=== PATIENT | female | born 1935 | race Asian ===

== ENCOUNTER 2022-10-18 16:58 | Inpatient (IN) | payer MEDICARE, MEDICAID ==
[~2022-10-18] VITALS: Ht 160 cm; Wt 60.1 kg
[2022-10-18] MEDS ORDERED: 0.9% SODIUM CHLORIDE 10 ML SYRINGE IVP PRN (18:00)
[2022-10-18 18:33] LABS: ANION GAP 13 mmol/L (8-16); CALCIUM, TOTAL 8.6 mg/dL (8.8-10.5); CARBON DIOXIDE 20 mmol/L (22-29); CHLORIDE 103 mmol/L (98-107); CREATININE 1.93 mg/dL (0.60-1.30); GLOMERULAR FILTR. RATE CALC 25 mL/min (>60); GLUCOSE,RANDOM 151 mg/dL (70-110); POTASSIUM 4.5 mmol/L (3.5-5.1); SODIUM SERUM 136 mmol/L (136-145); UREA NITROGEN, BLOOD 32 mg/dL (7-18)
[2022-10-18 18:37] LABS: INR 1.3 (0.9-1.1); PROTHROMBIN TIME 13.3 SEC (9.4-11.6)
[2022-10-18 18:39] LABS: ALANINE AMINOTRANSFERASE 15 U/L (12-78); ALBUMIN 3.2 g/dL (3.4-5.0); ALKALINE PHOSPHATASE 68 U/L (46-116); ASPARTATE AMINOTRANSFERASE 20 U/L (15-37); BILIRUBIN,TOTAL 1.2 mg/dL (0.1-1.0); TOTAL PROTEIN, SERUM 6.6 g/dL (6.4-8.2)
[2022-10-18 18:55] LABS: BASOPHILS % (AUTO) 0.3 % (0.0-2.0); EOSINOPHILS % (AUTO) 0.1 % (1.0-6.0); HEMATOCRIT 33.6 % (36-46); LYMPHOCYTES # (AUTO) 1.7 K/uL (1.0-4.8); LYMPHOCYTES % (AUTO) 10.7 % (22.0-44.0); MEAN CORPUSCULAR HEMOGLOBIN 33.2 pg (26.0-34.0); MEAN CORPUSCULAR HGB CONC 32.8 G/dL (31.0-37.0); MEAN CORPUSCULAR VOLUME 102 fL (80-100); MONOCYTES # (AUTO) 0.7 K/uL (0.1-1.0); MONOCYTES % (AUTO) 4.5 % (2.0-9.0); NEUTROPHILS # (AUTO) 13.4 K/uL (1.8-7.7); NEUTROPHILS % (AUTO) 84.4 % (40.0-70.0); PLATELET COUNT (AUTO) 141 K/uL (150-450); RED BLOOD CELL COUNT(AUTO) 3.31 MIL/uL (4.00-5.20); RED CELL DISTRIBUTION WIDTH 14.8 % (11.5-14.5)
[2022-10-18] MEDS ORDERED: ONDANSETRON HCL 4 MG/2 ML VIAL IVP ONE (19:15)
[2022-10-18] MEDS ORDERED: LORazepam 2 MG/ML VIAL IVP ONE (20:00)
[2022-10-18 20:32] LABS: COVID AG,FIA SOURCE NASAL SWAB
[2022-10-18 20:34] LABS: LACTIC ACID 4.4 mmol/L (0.4-2.0)
[2022-10-18 20:44] LABS: APPEARANCE,URINE HAZY (CLEAR); BILIRUBIN,URINE NEGATIVE (NEGATIVE); GLUCOSE, URINE (UA) NEGATIVE (NEGATIVE); KETONES,URINE NEGATIVE (NEGATIVE); LEUKOCYTE ESTERASE ,URINE LARGE (NEGATIVE); NITRATE,URINE NEGATIVE (NEGATIVE); OCCULT BLOOD,URINE SMALL (NEGATIVE); PROTEIN,URINE 100-200,SEE CONFIRM mg/dL (NEGATIVE); SPECIFIC GRAVITIY, URINE 1.013 (1.003-1.030); UROBILINOGEN,URINE <=1.0 mg/dL (<=1.0)
[2022-10-18] MEDS ORDERED: PIPERACILLIN/TAZO 3.375 GM/D5W 50 ML IV ONE (20:45)
[2022-10-18] MEDS ORDERED: SODIUM CHLORIDE 0.9% 2,050 ML IV ONE (20:45)
[2022-10-18 21:08] LABS: BACTERIA,URINE Rare /HPF (None Seen); RBC,URINE 0-2 /HPF (0-2); SQUAMOUS EPITHELIAL CELL,UR Few /LPF (None Seen); SULFOSALICYLIC ACID,URINE 1+ (Negative)
[2022-10-18] MEDS ORDERED: SODIUM CHLORIDE 0.9% 1,000 ML IV SCH (21:15)
[2022-10-18] MEDS ORDERED: ONDANSETRON HCL 4 MG/2 ML VIAL IVP PRN (21:15)
[2022-10-18] MEDS ORDERED: ACETAMINOPHEN 325 MG TABLET PO PRN (21:15)
[2022-10-18] MEDS ORDERED: NOREPINEPHRINE 8 MG/D5%-WATER 250 ML IV PRN (21:15)
[2022-10-18] MEDS ORDERED: SODIUM CHLORIDE 0.9% 1,000 ML IV ONE (21:30)
[2022-10-18] MEDS ORDERED: DEXTROSE 50%-WATER 25 GM/50 ML SYRINGE IVP PRN (21:30)
[2022-10-18 22:14] LABS: CREATININE,URINE RANDOM 52.4 mg/dL (30.0-125.0)
[2022-10-18 22:19] LABS: AMPHET/METH SCREEN,URINE NEGATIVE (NEGATIVE); BARBITURATE SCREEN, URINE NEGATIVE (NEGATIVE); BENZODIAZEPINES SCREEN,URINE NEGATIVE (NEGATIVE); CANNABINOID SCREEN,URINE NEGATIVE (NEGATIVE); COCAINE SCREEN,URINE NEGATIVE (NEGATIVE); METHADONE SCREEN, URINE NEGATIVE (NEGATIVE); OPIATE SCREEN,URINE NEGATIVE (NEGATIVE); PHENCYCLIDINE SCREEN,URINE NEGATIVE (NEGATIVE)
[2022-10-19] MEDS ORDERED: ACETAMINOPHEN 325 MG/ISO-OSM 32.5 ML IV ONE (02:30)
[2022-10-19] MEDS ORDERED: *CLINICAL-CEFEPIME DOSING CLINICAL ONE (02:30)
[2022-10-19] MEDS ORDERED: HALOPERIDOL LACTATE 5 MG/ML VIAL IM ONE ×4 (02:30→23:30)
[2022-10-19] MEDS ORDERED: VANCOMYCIN 1GM/WATER(PEG/NADA) 200 ML IV PRN (02:45)
[2022-10-19] MEDS ORDERED: VANCOMYCIN HCL 1.5 GM in DEXTROSE 5%-WATER 250 ML IV ONE (03:00)
[2022-10-19] MEDS: CEFEPIME HCL 1 GM in DEXTROSE 5%-WATER 50 ML IV SCH (04:03)
[2022-10-19] MEDS ORDERED: PIPERACILLIN SODIUM/TAZOBACTAM 2.25 GM in DEXTROSE 5%-WATER 50 ML IV SCH (05:00)
[2022-10-19] MEDS ORDERED: HEPARIN SODIUM,PORCINE 5,000 UNITS/ML VIAL SQ SCH ×2 (07:00)
[2022-10-19 07:05] LABS: BASOPHILS % (AUTO) 0.3 % (0.0-2.0); EOSINOPHILS % (AUTO) 0.1 % (1.0-6.0); HEMATOCRIT 32.3 % (36-46); HEMOGLOBIN 11.1 g/dL (12.0-16.0); LYMPHOCYTES # (AUTO) 1.1 K/uL (1.0-4.8); LYMPHOCYTES % (AUTO) 5.8 % (22.0-44.0); MEAN CORPUSCULAR HEMOGLOBIN 34.1 pg (26.0-34.0); MEAN CORPUSCULAR HGB CONC 34.3 G/dL (31.0-37.0); MEAN CORPUSCULAR VOLUME 99 fL (80-100); MONOCYTES % (AUTO) 5.3 % (2.0-9.0); NEUTROPHILS # (AUTO) 16.4 K/uL (1.8-7.7); PLATELET COUNT (AUTO) 121 K/uL (150-450); RED BLOOD CELL COUNT(AUTO) 3.26 MIL/uL (4.00-5.20)
[2022-10-19 07:07] LABS: NEUTROPHILS % (AUTO) 88.5 % (40.0-70.0)
[2022-10-19 07:17] LABS: CALCIUM, TOTAL 7.7 mg/dL (8.8-10.5); CREATININE 1.54 mg/dL (0.60-1.30); MAGNESIUM 1.6 mg/dL (1.80-2.40); POTASSIUM 4.5 mmol/L (3.5-5.1)
[2022-10-19 07:33] LABS: ABG BASE EXCESS -7.4 mmol/L (-2.0-3.0); ABG CARBOXYHEMOGLOBIN 0.3 % (0.0-1.5); ABG HCO3 19.6 mmol/L (22.0-26.0); ABG METHEMOGLOBIN 0.1 % (0.0-1.5); ABG OXYGEN CONTENT 15.6 mL/dL (15.0-23.0); ABG OXYGEN SATURATION 92.9 % (95.0-98.0); ABG OXYHEMOGLOBIN 92.5 % (94.0-100.0); ABG PCO2 26 mmHg (35-45); ABG PH 7.435 (7.35-7.450); PO2, ARTERIAL BG 66.9 mmHg (71.0-79.0); SITE, BLOOD GAS LFT RADIAL; SOURCE, BLOOD GAS ARTERIAL; TEMPERATURE, FAHRENHEIT, BG 98.9 FAHREN (96.0-98.6)
[2022-10-19 07:34] LABS: O2 DEVICE,BLOOD GAS ROOM AIR (ROOM AIR)
[2022-10-19] MEDS: DOCUSATE SODIUM 100 MG CAPSULE PO SCH ×2 (08:34→21:00)
[2022-10-19] MEDS ORDERED: ASCO500 PO (08:53)
[2022-10-19] MEDS ORDERED: TRAZ-252 PO (08:53)
[2022-10-19] MEDS ORDERED: PANT-31 PO (08:53)
[2022-10-19] MEDS ORDERED: APIX5TAB PO (08:53)
[2022-10-19] MEDS ORDERED: TRAZ-257 PO (08:53)
[2022-10-19] MEDS ORDERED: CRAN500T4 PO (08:53)
[2022-10-19] MEDS ORDERED: AMLO-258 PO (08:53)
[2022-10-19] MEDS ORDERED: ATEN-72 PO (08:53)
[2022-10-19] MEDS ORDERED: CYAN500T56 PO (08:53)
[2022-10-19] MEDS ORDERED: XALA2.5OS OU (08:53)
[2022-10-19] MEDS ORDERED: ATOR40TA28 PO (08:53)
[2022-10-19] MEDS ORDERED: CHOL25TA4 PO (08:53)
[2022-10-19] MEDS: LORazepam 2 MG/ML VIAL IVP PRN (11:24)
[2022-10-19] MEDS ORDERED: ACETAMINOPHEN 650 MG RECTAL SUPPOSITORY PR PRN (12:15)
[2022-10-19] MEDS ORDERED: *CLINICAL-LEVOFLOXACIN IVPB DOSING CLINICAL ONE (13:00)
[2022-10-19] MEDS: HEPARIN SODIUM,PORCINE 5,000 UNITS/ML VIAL SQ SCH ×3 (13:31→23:22)
[2022-10-19] MEDS: LEVOFLOXACIN 750 MG/D5% WATER 150 ML IV SCH (13:32)
[2022-10-19 19:01] LABS: GLUCOSE,POINT OF CARE 125 MG/DL (70-110)
[2022-10-19] MEDS ORDERED: MAGNESIUM SULFATE 2 GM/WATER 50 ML IV ONE (22:45)
[2022-10-19 23:07] LABS: CALCIUM, TOTAL 8.7 mg/dL (8.8-10.5); CREATININE 1.15 mg/dL (0.60-1.30); POTASSIUM 3.8 mmol/L (3.5-5.1)
[2022-10-19 23:08] LABS: MAGNESIUM 1.9 mg/dL (1.80-2.40)
[2022-10-19] MEDS ORDERED: DILTIAZEM HCL 5 MG/ML 5 ML VIAL IVP ONE (23:45)
[2022-10-19] MEDS ORDERED: DiphenhydrAMINE HCL 50 MG/ML VIAL IVP ONE (23:45)
[2022-10-20] MEDS ORDERED: SODIUM CHLORIDE 0.9% 1,000 ML IV ONE (02:00)
[2022-10-20] MEDS ORDERED: DIGOXIN 250 MCG/ML 2 ML AMP IVP ONE (02:00)
[2022-10-20] MEDS ORDERED: LORazepam 2 MG/ML VIAL IM ONE (04:00)
[2022-10-20] MEDS ORDERED: HALOPERIDOL LACTATE 5 MG/ML VIAL IM ONE (04:00)
[2022-10-20] MEDS ORDERED: DiphenhydrAMINE HCL 50 MG/ML VIAL IM ONE (04:00)
[2022-10-20] MEDS: CEFEPIME HCL 1 GM in DEXTROSE 5%-WATER 50 ML IV SCH (04:29)
[2022-10-20] MEDS ORDERED: LORazepam 2 MG/ML VIAL IVP ONE (05:45)
[2022-10-20 07:09] LABS: BASOPHILS % (AUTO) 0.2 % (0.0-2.0); EOSINOPHILS % (AUTO) 0.2 % (1.0-6.0); HEMATOCRIT 32.1 % (36-46); LYMPHOCYTES # (AUTO) 0.9 K/uL (1.0-4.8); LYMPHOCYTES % (AUTO) 6.8 % (22.0-44.0); MEAN CORPUSCULAR HEMOGLOBIN 33.6 pg (26.0-34.0); MEAN CORPUSCULAR HGB CONC 34.3 G/dL (31.0-37.0); MEAN CORPUSCULAR VOLUME 98 fL (80-100); MONOCYTES # (AUTO) 0.8 K/uL (0.1-1.0); MONOCYTES % (AUTO) 6.4 % (2.0-9.0); NEUTROPHILS # (AUTO) 10.9 K/uL (1.8-7.7); PLATELET COUNT (AUTO) 120 K/uL (150-450); RED BLOOD CELL COUNT(AUTO) 3.28 MIL/uL (4.00-5.20); RED CELL DISTRIBUTION WIDTH 14.8 % (11.5-14.5)
[2022-10-20 07:15] LABS: NEUTROPHILS % (AUTO) 86.4 % (40.0-70.0)
[2022-10-20 07:20] LABS: CALCIUM, TOTAL 8.6 mg/dL (8.8-10.5); CREATININE 1.02 mg/dL (0.60-1.30); POTASSIUM 4.2 mmol/L (3.5-5.1)
[2022-10-20] MEDS: HEPARIN SODIUM,PORCINE 5,000 UNITS/ML VIAL SQ SCH (08:04)
[2022-10-20] MEDS: DOCUSATE SODIUM 100 MG CAPSULE PO SCH ×2 (09:00→20:55)
[2022-10-20] MEDS: APIXABAN 5 MG TABLET PO SCH ×2 (09:00→20:55)
[2022-10-20] MEDS ORDERED: AMIODARONE HCL 150 MG in DEXTROSE 5%-WATER 97 ML IV ONE (10:50)
[2022-10-20] MEDS ORDERED: AMIODARONE HCL 360 MG in DEXTROSE 5%-WATER 242.8 ML IV ONE (11:00)
[2022-10-20] MEDS ORDERED: HEPARIN SODIUM,PORCINE 5,000 UNITS/ML VIAL IVP ONE (12:45)
[2022-10-20] MEDS ORDERED: HEPARIN SODIUM,PORCINE 5,000 UNITS/ML VIAL IVP PRN (12:45)
[2022-10-20 12:58] LABS: BASOPHILS % (AUTO) 0.4 % (0.0-2.0); EOSINOPHILS % (AUTO) 0.3 % (1.0-6.0); HEMATOCRIT 32.5 % (36-46); HEMOGLOBIN 11.3 g/dL (12.0-16.0); LYMPHOCYTES # (AUTO) 1.1 K/uL (1.0-4.8); MEAN CORPUSCULAR HEMOGLOBIN 34.1 pg (26.0-34.0); MEAN CORPUSCULAR HGB CONC 34.7 G/dL (31.0-37.0); MEAN CORPUSCULAR VOLUME 98 fL (80-100); MONOCYTES # (AUTO) 0.8 K/uL (0.1-1.0); MONOCYTES % (AUTO) 6.8 % (2.0-9.0); NEUTROPHILS # (AUTO) 9.9 K/uL (1.8-7.7); NEUTROPHILS % (AUTO) 83.5 % (40.0-70.0); PLATELET COUNT (AUTO) 130 K/uL (150-450); RED BLOOD CELL COUNT(AUTO) 3.31 MIL/uL (4.00-5.20)
[2022-10-20 13:15] LABS: INR 1.1 (0.9-1.1); PROTHROMBIN TIME 11.4 SEC (9.4-11.6)
[2022-10-20 14:50] VITALS: BP 132/97
[2022-10-20] MEDS ORDERED: SODIUM CHLORIDE 0.9% 250 ML IV ONE (15:08)
[2022-10-20] MEDS: HEPARIN SODIUM 25000 UNITS/D5W 250 ML IV PRN (15:25)
[2022-10-20] MEDS ORDERED: CEFEPIME HCL 2 GM in DEXTROSE 5%-WATER 50 ML IV SCH (16:00)
[2022-10-20] MEDS ORDERED: AMIODARONE HCL 540 MG in DEXTROSE 5%-WATER 239.2 ML IV ONE (17:00)
[2022-10-20 17:30] VITALS: BP 120/78
[2022-10-20 18:21] LABS: GLUCOMETER DEV NAME(LOC) 5N.2C; GLUCOSE,POINT OF CARE 162 MG/DL (70-110)
[2022-10-20 20:02] VITALS: BP 109/54
[2022-10-20] MEDS: LORazepam 2 MG/ML VIAL IVP PRN (21:12)
[2022-10-20 23:50] VITALS: BP 140/97
[2022-10-21 00:51] LABS: GLUCOMETER DEV NAME(LOC) 5N.2C; GLUCOSE,POINT OF CARE 157 MG/DL (70-110)
[2022-10-21 05:14] VITALS: BP 110/72
[2022-10-21 07:16] VITALS: BP 123/78
[2022-10-21 07:28] LABS: BASOPHILS % (AUTO) 0.7 % (0.0-2.0); EOSINOPHILS % (AUTO) 0.8 % (1.0-6.0); HEMATOCRIT 28.3 % (36-46); HEMOGLOBIN 10.1 g/dL (12.0-16.0); LYMPHOCYTES # (AUTO) 1.3 K/uL (1.0-4.8); LYMPHOCYTES % (AUTO) 14.6 % (22.0-44.0); MEAN CORPUSCULAR HEMOGLOBIN 35.1 pg (26.0-34.0); MEAN CORPUSCULAR HGB CONC 35.8 G/dL (31.0-37.0); MEAN CORPUSCULAR VOLUME 98 fL (80-100); MONOCYTES # (AUTO) 0.8 K/uL (0.1-1.0); MONOCYTES % (AUTO) 9.3 % (2.0-9.0); NEUTROPHILS # (AUTO) 6.7 K/uL (1.8-7.7); NEUTROPHILS % (AUTO) 74.6 % (40.0-70.0); PLATELET COUNT (AUTO) 130 K/uL (150-450); RED BLOOD CELL COUNT(AUTO) 2.88 MIL/uL (4.00-5.20); RED CELL DISTRIBUTION WIDTH 14.9 % (11.5-14.5)
[2022-10-21 07:43] LABS: CALCIUM, TOTAL 8.3 mg/dL (8.8-10.5); CREATININE 0.97 mg/dL (0.60-1.30); POTASSIUM 3.7 mmol/L (3.5-5.1)
[2022-10-21] MEDS: DOCUSATE SODIUM 100 MG CAPSULE PO SCH ×2 (08:37→22:05)
[2022-10-21] MEDS: APIXABAN 5 MG TABLET PO SCH ×2 (08:37→22:05)
[2022-10-21] MEDS: HEPARIN SODIUM,PORCINE 5,000 UNITS/ML VIAL IVP PRN ×2 (09:33→18:55)
[2022-10-21] MEDS ORDERED: AMIODARONE HCL 750 MG in DEXTROSE 5%-WATER 485 ML IV SCH (11:00)
[2022-10-21 11:19] VITALS: BP 123/82
[2022-10-21] MEDS: LEVOFLOXACIN 750 MG/D5% WATER 150 ML IV SCH (12:25)
[2022-10-21] MEDS: DEXTROSE 5%-0.45% SODIUM CHL 1,000 ML IV SCH (12:30)
[2022-10-21 13:17] LABS: GLUCOMETER DEV NAME(LOC) 5N.2C; GLUCOSE,POINT OF CARE 134 MG/DL (70-110)
[2022-10-21 15:15] VITALS: BP 109/73
[2022-10-21] MEDS: CEFEPIME HCL 2 GM in DEXTROSE 5%-WATER 50 ML IV SCH (15:40)
[2022-10-21 18:31] LABS: GLUCOMETER DEV NAME(LOC) 5S.2C; GLUCOSE,POINT OF CARE 124 MG/DL (70-110)
[2022-10-21 20:12] VITALS: BP 105/69
[2022-10-21 23:41] LABS: GLUCOMETER DEV NAME(LOC) 5S.2C; GLUCOSE,POINT OF CARE 158 MG/DL (70-110)
[2022-10-22] MEDS: CEFEPIME HCL 2 GM in DEXTROSE 5%-WATER 50 ML IV SCH ×2 (00:29→13:35)
[2022-10-22 00:37] VITALS: BP 132/74
[2022-10-22 06:17] VITALS: BP 111/66
[2022-10-22] MEDS: DEXTROSE 5%-0.45% SODIUM CHL 1,000 ML IV SCH (06:30)
[2022-10-22] MEDS: HEPARIN SODIUM 25000 UNITS/D5W 250 ML IV PRN (06:43)
[2022-10-22 07:45] VITALS: BP 113/67
[2022-10-22 08:00] LABS: CALCIUM, TOTAL 7.6 mg/dL (8.8-10.5); CREATININE 0.97 mg/dL (0.60-1.30); POTASSIUM 3.1 mmol/L (3.5-5.1)
[2022-10-22] MEDS: DOCUSATE SODIUM 100 MG CAPSULE PO SCH ×2 (08:42→20:09)
[2022-10-22] MEDS: APIXABAN 5 MG TABLET PO SCH ×2 (08:42→20:09)
[2022-10-22 10:16] LABS: GLUCOMETER DEV NAME(LOC) 5N.2C; GLUCOSE,POINT OF CARE 159 MG/DL (70-110)
[2022-10-22 11:29] VITALS: BP 118/70
[2022-10-22] MEDS ORDERED: SODIUM CHLORIDE 0.9% 1,000 ML IV ONE (11:45)
[2022-10-22 14:25] LABS: GLUCOMETER DEV NAME(LOC) 5N.2C; GLUCOSE,POINT OF CARE 163 MG/DL (70-110)
[2022-10-22 15:30] VITALS: BP 131/77
[2022-10-22] MEDS: AMIODARONE HCL 200 MG TABLET PO SCH (20:09)
[2022-10-22] MEDS: INSULIN LISPRO 100 UNITS/ML SQ PRN (20:29)
[2022-10-22 20:33] VITALS: BP 126/74
[2022-10-22] MEDS: LORazepam 2 MG/ML VIAL IVP PRN (23:53)
[2022-10-23] MEDS: CefTRIAXone 1 GM/DEXTROSE 50 ML IV SCH (00:03)
[2022-10-23 00:23] VITALS: BP 116/79
[2022-10-23 06:21] LABS: GLUCOMETER DEV NAME(LOC) 5S.1B; GLUCOSE,POINT OF CARE 156 MG/DL (70-110)
[2022-10-23 07:00] VITALS: BP 121/65
[2022-10-23 07:40] VITALS: BP 121/74
[2022-10-23 08:06] LABS: GLUCOMETER DEV NAME(LOC) 5S.1B; GLUCOSE,POINT OF CARE 139 MG/DL (70-110)
[2022-10-23 08:06] LABS: GLUCOMETER DEV NAME(LOC) 5N.2C; GLUCOSE,POINT OF CARE 137 MG/DL (70-110)
[2022-10-23] MEDS: DOCUSATE SODIUM 100 MG CAPSULE PO SCH ×2 (08:20→20:29)
[2022-10-23] MEDS: APIXABAN 5 MG TABLET PO SCH ×2 (08:20→20:29)
[2022-10-23] MEDS: AMIODARONE HCL 200 MG TABLET PO SCH ×2 (08:20→20:29)
[2022-10-23 11:03] LABS: BASOPHILS % (AUTO) 0.3 % (0.0-2.0); EOSINOPHILS % (AUTO) 0.5 % (1.0-6.0); HEMATOCRIT 28.7 % (36-46); HEMOGLOBIN 10.3 g/dL (12.0-16.0); LYMPHOCYTES # (AUTO) 0.9 K/uL (1.0-4.8); LYMPHOCYTES % (AUTO) 13.6 % (22.0-44.0); MEAN CORPUSCULAR HEMOGLOBIN 34.5 pg (26.0-34.0); MEAN CORPUSCULAR HGB CONC 35.8 G/dL (31.0-37.0); MEAN CORPUSCULAR VOLUME 96 fL (80-100); MONOCYTES # (AUTO) 0.9 K/uL (0.1-1.0); NEUTROPHILS % (AUTO) 72.6 % (40.0-70.0); PLATELET COUNT (AUTO) 176 K/uL (150-450); RED BLOOD CELL COUNT(AUTO) 2.98 MIL/uL (4.00-5.20); RED CELL DISTRIBUTION WIDTH 14.8 % (11.5-14.5)
[2022-10-23 11:17] LABS: ANION GAP 11 mmol/L (8-16); CALCIUM, TOTAL 8.1 mg/dL (8.8-10.5); CARBON DIOXIDE 22 mmol/L (22-29); CHLORIDE 108 mmol/L (98-107); CREATININE 0.85 mg/dL (0.60-1.30); GLOMERULAR FILTR. RATE CALC > 60 mL/min (>60); GLUCOSE,RANDOM 168 mg/dL (70-110); SODIUM SERUM 141 mmol/L (136-145); UREA NITROGEN, BLOOD 13 mg/dL (7-18)
[2022-10-23] MEDS: INSULIN LISPRO 100 UNITS/ML SQ PRN ×2 (11:36→20:48)
[2022-10-23 11:53] VITALS: BP 102/58
[2022-10-23] MEDS: LEVOFLOXACIN 750 MG/D5% WATER 150 ML IV SCH (13:35)
[2022-10-23] MEDS ORDERED: POTASSIUM CHLORIDE 10% 40 MEQ/30 ML LIQUID UDCUP PO PRN (14:15)
[2022-10-23] MEDS ORDERED: POTASSIUM CHL 10 MEQ/WATER 50 ML IV PRN (14:15)
[2022-10-23 15:36] VITALS: BP 122/71
[2022-10-23 17:11] LABS: GLUCOMETER DEV NAME(LOC) 5N.2C; GLUCOSE,POINT OF CARE 147 MG/DL (70-110)
[2022-10-23 21:02] VITALS: BP 134/76
[2022-10-23] MEDS: LORazepam 2 MG/ML VIAL IVP PRN (22:09)
[2022-10-24] MEDS: CefTRIAXone 1 GM/DEXTROSE 50 ML IV SCH (00:57)
[2022-10-24 01:05] VITALS: BP 121/76
[2022-10-24 04:24] VITALS: BP 104/66
[2022-10-24 06:01] LABS: GLUCOMETER DEV NAME(LOC) 5S.1B; GLUCOSE,POINT OF CARE 127 MG/DL (70-110)
[2022-10-24] MEDS: LORazepam 2 MG/ML VIAL IVP PRN (07:46)
[2022-10-24 08:02] VITALS: BP 116/66
[2022-10-24] MEDS: DOCUSATE SODIUM 100 MG CAPSULE PO SCH (08:07)
[2022-10-24] MEDS: APIXABAN 5 MG TABLET PO SCH (08:08)
[2022-10-24] MEDS: AMIODARONE HCL 200 MG TABLET PO SCH (08:10)
[2022-10-24 10:51] VITALS: BP 110/65
[2022-10-24 11:07] LABS: COVID AG,FIA SOURCE NASOPHARYNGEAL
[2022-10-24] MEDS: INSULIN LISPRO 100 UNITS/ML SQ PRN (12:21)
[2022-10-24] MEDS ORDERED: CEFX2I IV (13:03)
[2022-10-24] MEDS ORDERED: ACET-2247 PO (13:04)
[2022-10-25 02:47] LABS: GLUCOMETER DEV NAME(LOC) 5N.2C; GLUCOSE,POINT OF CARE 151 MG/DL (70-110)
[2022-10-25 02:47] LABS: GLUCOMETER DEV NAME(LOC) 5N.2C; GLUCOSE,POINT OF CARE 156 MG/DL (70-110)
== END 2022-10-24 13:30 | DRG 871 ==
LOC: EDBD 17:04 → EMS 17:04 → ICUN 10-19 07:07 → 5N 10-20 13:07
PROVIDERS: ADMIT Internal Medicine; ATTEND Internal Medicine
DX: A41.9 Sepsis, unspecified organism (principal); J96.01 Acute respiratory failure with hypoxia; N17.0 Acute kidney failure with tubular necrosis; R65.21 Severe sepsis with septic shock; G93.40 Encephalopathy, unspecified; N39.0 Urinary tract infection, site not specified; E11.65 Type 2 diabetes mellitus with hyperglycemia; I48.91 Unspecified atrial fibrillation; I10 Essential (primary) hypertension; K21.9 Gastro-esophageal reflux disease without esophagitis; Z20.822 Contact with and (suspected) exposure to COVID-19; E78.5 Hyperlipidemia, unspecified; B96.20 Unspecified Escherichia coli [E. coli] as the cause of diseases classified elsewhere; Z86.73 Personal history of transient ischemic attack (TIA), and cerebral infarction without residual deficits
CPT/HCPCS: 36600; 70450; 71045; 74176; 80048; 80053; 80307; 81001; 81002; 82140; 82570; 82805; 82962; 83605; 83735; 84132; 84300; 84484; 85025; 85610; 85730; 87040; 87077; 87086; 87186; 87205; 92507; 92526; 92610; 93005; 93306; 97162; 97530; 99291; G0378; J0131; J0282; J0692; J0696; J1160; J1200; J1630; J1644; J1956; J2060; J2405; J2543; J3370; J3475; J3490; J7030; J7050; J7060; Q9967; 36415-L1; 36415-TC